=== PATIENT | male | born 1975 | race Caucasian/White ===

== ENCOUNTER 2021-04-27 05:31 | Emergency (ER) | payer OTHER | END 2021-04-27 05:40 | disposition left against medical advice (07) | LOC: EMS 05:40 | DX: S59.909A Unspecified injury of unspecified elbow, initial encounter (principal); W18.39XA Other fall on same level, initial encounter; Y93.89 Activity, other specified; Y92.89 Other specified places as the place of occurrence of the external cause; Y99.8 Other external cause status; Z53.21 Procedure and treatment not carried out due to patient leaving prior to being seen by health care provider ==